=== PATIENT | male | born 1970 | race Caucasian/White ===

== ENCOUNTER → 2020-09-02 | Outpatient (CLI) | payer BC ==
[2020-09-02 16:14] LABS: HEMATOCRIT 55.2 % (42.0-52.0); HEMOGLOBIN 18.9 g/dL (13.5-18.0)
== END ==
LOC: LAB 16:00
PROVIDERS: Urology
DX: R53.83 Other fatigue (principal); R63.5 Abnormal weight gain; R68.82 Decreased libido

== ENCOUNTER → 2020-12-10 | Outpatient (CLI) | payer BC ==
[2020-12-10 16:19] LABS: BASO # 0.1 (0.02-0.10); EOS # 0.3 (0.04-0.40); HEMATOCRIT 49.4 % (42.0-52.0); HEMOGLOBIN 17.3 g/dL (13.5-18.0); LYMPH# 1.9 (1.50-4.00); MEAN CELL VOLUME 86 fl (78-100); MEAN CORPUSCULAR HEMOGLOBIN 30 pg (27-31); MEAN CORPUSCULAR HGB CONC 35 g/dL (33-37); MEAN PLATELET VOLUME 8.9 fl (7.4-10.4); MONO # 0.5 (0.20-0.80); NEU # 2.5 (1.40-6.50); PLATELET COUNT 212 K/mm3 (130-400); RED BLOOD COUNT 5.72 M/mm3 (4.20-5.60); RED CELL DISTRIBUTION WIDTH 12.7 % (11.5-14.5); WHITE BLOOD COUNT 5.3 K/mm3 (4.8-10.8)
[2020-12-10 16:20] LABS: EOS % 5.1 % (0.0-4.0)
== END ==
LOC: LAB 16:11
PROVIDERS: Urology
DX: R63.5 Abnormal weight gain (principal); R53.83 Other fatigue; R68.82 Decreased libido

== ENCOUNTER → 2021-07-08 | Outpatient (CLI) | payer BC ==
[2021-07-08 15:19] LABS: HEMATOCRIT 49.9 % (42.0-52.0); HEMOGLOBIN 17.8 g/dL (13.5-18.0)
== END ==
LOC: LAB 15:07
PROVIDERS: Urology
DX: R63.5 Abnormal weight gain (principal); R53.83 Other fatigue; R68.82 Decreased libido

== ENCOUNTER → 2021-12-29 | Outpatient (CLI) | payer BC ==
[2021-12-29 15:01] LABS: HEMATOCRIT 52.9 % (42.0-52.0); HEMOGLOBIN 18.3 g/dL (13.5-18.0)
== END ==
LOC: LAB 14:44
PROVIDERS: Urology
DX: R53.83 Other fatigue (principal); R68.82 Decreased libido; R63.5 Abnormal weight gain

== ENCOUNTER → 2022-01-06 | Outpatient (CLI) | payer BC ==
[2022-01-06 10:42] LABS: BASO # 0.06 K/mm3 (0.02-0.10); EOS # 0.28 K/mm3 (0.04-0.40); EOS % 7.5 % (0.0-4.0); HEMATOCRIT 47.5 % (42.0-52.0); HEMOGLOBIN 16.7 g/dL (13.5-18.0); LYMPH# 1.28 K/mm3 (1.50-4.00); MEAN CELL VOLUME 87 fl (78-100); MEAN CORPUSCULAR HEMOGLOBIN 31 pg (27-31); MEAN CORPUSCULAR HGB CONC 35 g/dL (33-37); MEAN PLATELET VOLUME 8.7 fl (7.4-10.4); NEU # 1.81 K/mm3 (1.40-6.50); PLATELET COUNT 197 K/mm3 (130-400); RED BLOOD COUNT 5.48 M/mm3 (4.20-5.60); RED CELL DISTRIBUTION WIDTH 12.2 % (11.5-14.5); WHITE BLOOD COUNT 3.7 K/mm3 (4.8-10.8)
== END ==
LOC: LAB 10:26
PROVIDERS: Urology
DX: R63.5 Abnormal weight gain (principal); R53.83 Other fatigue; R68.82 Decreased libido